=== PATIENT | male | born 1940 | race Caucasian/White ===

== ENCOUNTER 2020-06-02 07:07 | Outpatient (CLI) | payer OTHER | END 2020-06-02 15:00 | disposition home or self-care (01) | LOC: MAMO-SONO 07:07 | PROVIDERS: ATTEND Internal Medicine Gastroenterology | DX: E04.8 Other specified nontoxic goiter (principal); R13.19 Other dysphagia; K76.0 Fatty (change of) liver, not elsewhere classified; R16.0 Hepatomegaly, not elsewhere classified ==